=== PATIENT | female | born 1990 | race Caucasian/White ===

== ENCOUNTER 2016-08-12 14:33 | Emergency (ER) | payer SELFPAY | END 2016-08-12 15:06 | disposition home or self-care (01) | LOC: MADERS 14:33 | DX: T63.461A Toxic effect of venom of wasps, accidental (unintentional), initial encounter (principal); I10 Essential (primary) hypertension | CPT/HCPCS: 99282 ==

== ENCOUNTER 2017-04-24 22:54 | Emergency (ER) | payer SELFPAY ==
[2017-04-24] MEDS ORDERED: Benzonatate 100 MG CAP ONE (23:35)
[2017-04-24] MEDS ORDERED: cefTRIAXone\\ROCEPHIN 1 GM VIAL ONE (23:35)
== END 2017-04-25 | disposition home or self-care (01) ==
LOC: MADERS 22:54
DX: J01.90 Acute sinusitis, unspecified (principal); I10 Essential (primary) hypertension
CPT/HCPCS: 96372; J0696; J1040; J2001

== ENCOUNTER 2018-05-07 21:20 | Emergency (ER) | payer SELFPAY ==
--- NOTE | 2018-05-07 21:59 | RAD ---
FEXAM: Left ankle radiographs 3 views PROVIDED CLINICAL HISTORY: Pain FINDINGS: There is no evidence for fracture or other acute osseous abnormality. Alignment appears anatomic. Lulu nt spaces appear preserved. IMPRESSION: No evidence for an acute osseous abnormality. If there is persistent clinical concern, conservative m anagement and follow-up imaging advised.
== END 2018-05-07 22:01 | disposition home or self-care (01) ==
LOC: MADERS 21:20
DX: S90.02XA Contusion of left ankle, initial encounter (principal); I10 Essential (primary) hypertension; W20.8XXA Other cause of strike by thrown, projected or falling object, initial encounter

== ENCOUNTER 2018-07-12 14:00 | Emergency (ER) | payer SELFPAY ==
[2018-07-12] MEDS ORDERED: Neomycin/Polymyxin/HC Otic Solution 10 ML BOT ONE (14:17)
== END 2018-07-12 14:35 | disposition home or self-care (01) ==
LOC: MADERS 14:00
DX: H60.93 Unspecified otitis externa, bilateral (principal)
CPT/HCPCS: 99282

== ENCOUNTER 2019-01-25 08:49 | Emergency (ER) | payer SELFPAY ==
--- NOTE | 2019-01-25 09:23 | RAD ---
Chest 2 views HISTORY: Cough and fever. FINDINGS: Cardiac silhouette and pulmonary vasculature are unremarkable. Mediastinum is midline. No c onfluent airspace Consolidation, pneumothorax, or pleural fluid. Gentle rightward curvature of the mid to lower thoracic spine. IMPRESSION: No active cardiopulmonary abnormalities are demonstrated.
== END 2019-01-25 09:47 | disposition home or self-care (01) ==
LOC: MADERS 08:49
DX: J18.9 Pneumonia, unspecified organism (principal); I10 Essential (primary) hypertension
CPT/HCPCS: 71046; 87804

== ENCOUNTER 2022-12-20 21:47 | Emergency (ER) | payer OTHER, SELFPAY ==
[2022-12-20] MEDS ORDERED: predniSONE 20 MG TAB ONE (22:23)
[2022-12-20] MEDS ORDERED: Amoxicillin/Potassium Clav 875 MG TAB ONE (22:23)
[2022-12-20] MEDS ORDERED: predniSONE 10 MG TAB ONE (22:23)
== END 2022-12-20 22:45 | disposition home or self-care (01) ==
LOC: MADERS 21:47
DX: H66.92 Otitis media, unspecified, left ear (principal); H73.92 Unspecified disorder of tympanic membrane, left ear; J06.9 Acute upper respiratory infection, unspecified; I10 Essential (primary) hypertension
CPT/HCPCS: 99282; J7512

== ENCOUNTER 2023-12-07 17:18 | Emergency (ER) | payer OTHER, SELFPAY | END 2023-12-07 17:47 | disposition home or self-care (01) | LOC: MADERS 17:18 | DX: M25.462 Effusion, left knee (principal); I10 Essential (primary) hypertension | CPT/HCPCS: 99283 ==

== ENCOUNTER 2023-12-24 12:34 | Emergency (ER) | payer SELFPAY ==
[2023-12-24] MEDS ORDERED: Ibuprofen 600 MG TAB ONE (13:26)
[2023-12-24] MEDS ORDERED: Acetaminophen 500 MG TAB ONE (13:27)
== END 2023-12-24 14:35 | disposition home or self-care (01) ==
LOC: MADERS 12:34
DX: M25.562 Pain in left knee (principal); M25.462 Effusion, left knee; I10 Essential (primary) hypertension
CPT/HCPCS: 99283

== ENCOUNTER 2024-10-07 07:53 | Outpatient (CLI) | payer SELFPAY ==
[2024-10-07 08:47] LABS: #Basophils 0.2 thou/uL (0.0-0.2); #Eosinophils 0.7 thou/uL (0.0-0.7); #Lymphocytes 2.9 thou/uL (1.20-3.40); #Monocytes 0.6 thou/uL (0.11-0.59); #Neutrophils 6.4 thou/uL (1.40-6.50); %Basophils 1.4 % (0.0-1.0); %Eosinophils 6.6 % (0.0-10.0); %Lymphocytes 26.9 % (21.0-51.0); %Monocytes 5.7 % (0.0-10.0); %Neutrophils 59.4 % (42.0-75.0); Hematocrit 41.5 % (36.0-47.0); Hemoglobin 13.0 g/dL (12.0-16.0); Mean Corpuscular Hemoglobin 27.4 pg (27.0-31.0); Mean Corpuscular Volume 87.5 fl (78.0-98.0); Platelet Count 259 10x3/uL (130-400); Red Blood Cell (RBC) Count 4.74 mill/uL (4.20-5.40); White Blood Cell (WBC) Count 10.8 10x3/uL (4.8-10.8)
[2024-10-07 09:06] LABS: ALT (SGPT) 12 U/L (Less than 34); AST (SGOT) 19 U/L (11-34); Albumin 3.9 g/dL (3.1-4.5); Alkaline Phosphatase 96 U/L (40-110); Anion Gap 14 mmol/L (10-20); BUN (Urea Nitrogen) 15 mg/dL (7.0-18.7); Bilirubin, Total 0.2 mg/dL (0.3-1.2); Calc. Creatinine Clearance 0 mL/min (70-130); Calcium 8.8 mg/dL (7.8-10.44); Carbon Dioxide 22 mmol/L (22-29); Chloride 107 mmol/L (98-107); Globulin 3.6 g/dL (2.4-3.5); Glucose 91 mg/dL (70-105); Potassium 3.9 mmol/L (3.5-5.1); Sodium 139 mmol/L (136-145)
== END 2024-10-07 07:54 | disposition home or self-care (01) ==
LOC: MADLAB 07:53
PROVIDERS: ATTEND Pathology Anatomic Pathology & Clinical Pathology
DX: Z00.00 Encounter for general adult medical examination without abnormal findings (principal)
CPT/HCPCS: 36415; 80050

== ENCOUNTER 2024-11-17 18:50 | Emergency (ER) | payer SELFPAY ==
[2024-11-17] MEDS ORDERED: Cephalexin 500 MG CAP ONE (19:58)
== END 2024-11-17 20:07 | disposition home or self-care (01) ==
LOC: MADERS 18:50
DX: L03.011 Cellulitis of right finger (principal); I10 Essential (primary) hypertension
CPT/HCPCS: 99283